=== PATIENT | female | born 1985 | race Caucasian/White ===

== ENCOUNTER 2016-10-10 05:18 | Emergency (ER) | payer OTHER | END 2016-10-10 06:30 | disposition home or self-care (01) | LOC: CED 05:18 | DX: J06.9 Acute upper respiratory infection, unspecified (principal); H10.9 Unspecified conjunctivitis; H92.01 Otalgia, right ear; Z79.899 Other long term (current) drug therapy; Z88.0 Allergy status to penicillin | CPT/HCPCS: 99283 ==